=== PATIENT | male | born 2000 | race Two or more races ===

== ENCOUNTER 2018-01-25 23:53 | Emergency (ER) | payer MEDICAID ==
[~2018-01-25] VITALS: Ht 175.3 cm; Wt 118.0 kg
[2018-01-26] MEDS ORDERED: IBUPROFEN 600MG TABLET PO ONE (01:00)
[2018-01-26] MEDS ORDERED: ONDANSETRON HCL 4MG/2ML VIAL IV STA (02:51)
[2018-01-26] MEDS ORDERED: SODIUM CHLORIDE 0.9% 1,000 ML IV ONE (02:51)
[2018-01-26] MEDS ORDERED: FENTANYL CITRATE/PF 50MCG/ML 2ML VIAL IV ONE (03:00)
[2018-01-26 03:12] LABS: BASOPHILS % 0.7 % (0.0-2.0); EOSINOPHILS % 2.2 % (0.0-5.0); HEMOGLOBIN. 15.2 g/dL (14.0-18.0); LYMPHOCYTES % 46.3 % (20.0-50.0); MEAN CORPUSCULAR HEMOGLOBIN 30.2 pg (28.0-32.0); MEAN CORPUSCULAR VOLUME 87.4 fL (80.0-94.0); MEAN PLATELET VOLUME 9.6 fl (7.4-10.4); MONOCYTES % 11.9 % (2.0-8.0); NEUTROPHILS % 38.9 % (40.0-76.0); PLATELET 235 x1000/uL (130-400); RED BLOOD CELL COUNT 5.03 mill/uL (4.7-6.1); RED CELL DISTRIBUTION WIDTH 12.9 % (11.6-14.6)
[2018-01-26 03:33] LABS: CHLORIDE 105 mEq/L (98-107)
[2018-01-26] MEDS ORDERED: IOHEXOL-300 100 ML BOTTLE ONE (03:57)
[2018-01-26 04:54] VITALS: BP 119/78
[2018-01-26] MEDS ORDERED: IBUPROFEN 600MG TABLET ONE (14:07)
== END 2018-01-26 04:55 | disposition home or self-care (01) ==
LOC: ER 23:53
DX: R06.02 Shortness of breath (principal); K76.0 Fatty (change of) liver, not elsewhere classified; V29.9XXA Motorcycle rider (driver) (passenger) injured in unspecified traffic accident, initial encounter; Y93.89 Activity, other specified; Y92.410 Unspecified street and highway as the place of occurrence of the external cause
CPT/HCPCS: 36415; 71045; 71260; 73030; 73502; 74177; 80048; 85025; 99285; J3010; J7030; Q9967

== ENCOUNTER 2019-06-22 05:00 | Day surgery (SDC) | payer MEDICAID ==
[~2019-06-22] VITALS: Ht 182.9 cm; Wt 113.0 kg
[2019-06-22] MEDS ORDERED: MORPHINE SULFATE 4 MG/ML CPJ (NOT FOR IM USE) IV STA (06:19)
[2019-06-22] MEDS ORDERED: ONDANSETRON HCL 4MG/2ML INJ IV STA (06:19)
[2019-06-22 07:14] LABS: BASOPHILS % 0.4 % (0.0-2.0); EOSINOPHILS % 0.7 % (0.0-5.0); HEMATOCRIT. 41.8 % (42.0-52.0); HEMOGLOBIN. 14.6 g/dL (14.0-18.0); LYMPHOCYTES % 20.4 % (20.0-50.0); MEAN CORPUSCULAR HEMOGLOBIN 30.6 pg (28.0-32.0); MEAN CORPUSCULAR VOLUME 87.8 fL (80.0-94.0); MEAN PLATELET VOLUME 9.2 fl (7.4-10.4); MONOCYTES % 6.4 % (2.0-8.0); NEUTROPHILS % 72.1 % (40.0-76.0); PLATELET 231 x1000/uL (130-400); RED BLOOD CELL COUNT 4.76 mill/uL (4.7-6.1); RED CELL DISTRIBUTION WIDTH 12.6 % (11.6-14.6)
[2019-06-22 07:21] LABS: CHLORIDE 106 mEq/L (98-107)
[2019-06-22] MEDS ORDERED: METRONIDAZOLE 500 MG PREMIX 100 ML IV ONE (07:45)
[2019-06-22] MEDS ORDERED: LEVOFLOXACIN 750MG PREMIX 150 ML IV ONE (07:45)
[2019-06-22] MEDS ORDERED: BUPIVACAINE HCL 0.5% (5MG/ML) 50ML ONE (08:51)
[2019-06-22] MEDS ORDERED: SKIN ADHESIVE 0.7 GM EA TOP ONE (08:51)
[2019-06-22] MEDS ORDERED: MORPHINE SULFATE 4 MG/ML CPJ (NOT FOR IM USE) IV ONE (09:15)
[2019-06-22 09:29] LABS: CLARITY URINE CLEAR (CLEAR); COLOR URINE YELLOW (YELLOW); KETONES URINE NEGATIVE (NEGATIVE); LEUKOCYTE ESTERASE URINE NEGATIVE (NEGATIVE); NITRITE URINE NEGATIVE (NEGATIVE); OCCULT BLOOD URINE NEGATIVE (NEGATIVE); PH URINE 7.5 (4.5-8.0); PROTEIN URINE NEGATIVE (NEGATIVE); UROBILINOGEN URINE 0.2 E.U./dL (0.2-1.0)
[2019-06-22] MEDS ORDERED: DOCUSATE SODIUM 100MG CAPSULE PO PRN (09:30)
[2019-06-22] MEDS ORDERED: HYDROCODONE/ACETAMINOPHEN 5/325MG TABLET PO PRN (09:30)
[2019-06-22] MEDS ORDERED: MORPHINE SULFATE 2 MG/ML CPJ (NOT FOR IM USE) IV PRN (09:30)
[2019-06-22] MEDS ORDERED: ONDANSETRON HCL 4MG/2ML INJ IV PRN ×2 (09:30→12:15)
[2019-06-22] MEDS ORDERED: LORAZEPAM 2MG/ML CPJ IV PRN (09:30)
[2019-06-22] MEDS ORDERED: IPRATROPIUM/ALBUTEROL 0.5-3(2.5)MG/3ML NEB INH PRN (09:30)
[2019-06-22] MEDS ORDERED: MAGNESIUM/ALUMINUM HYDROXIDE/SIMETHICONE 30ML UDC PO PRN (09:30)
[2019-06-22] MEDS ORDERED: CLONIDINE 0.1MG TABLET PO PRN (09:30)
[2019-06-22] MEDS ORDERED: GUAIFENESIN 200MG/10ML SUGAR FREE UDC PO PRN (09:30)
[2019-06-22] MEDS ORDERED: DIPHENHYDRAMINE 50MG/ML VIAL IV PRN (09:30)
[2019-06-22] MEDS ORDERED: ACETAMINOPHEN 325MG TABLET PO PRN (09:30)
[2019-06-22] MEDS ORDERED: ENOXAPARIN 30MG/0.3ML SYR SUBCUT SCH ×2 (11:00→21:00)
[2019-06-22] MEDS ORDERED: PIPERACILLIN/TAZ 3.375G PREMIX 50 ML IV SCH ×2 (11:15→19:00)
[2019-06-22] MEDS ORDERED: FENTANYL CITRATE/PF 50MCG/ML 2ML VIAL ONE (11:25)
[2019-06-22] MEDS ORDERED: ROCURONIUM BROMIDE 10MG/ML VIAL 5ML IV ONE (11:26)
[2019-06-22] MEDS ORDERED: NEOSTIGMINE METHYLSULFATE 1MG/ML 10 ML VIAL ONE (11:26)
[2019-06-22] MEDS ORDERED: GLYCOPYRROLATE 0.2 MG/ML 2ML VIAL ONE (11:26)
[2019-06-22] MEDS ORDERED: PROPOFOL 200MG/20ML VIAL IV ONE (11:26)
[2019-06-22] MEDS ORDERED: MIDAZOLAM HCL 2 MG/2 ML VIAL ONE (11:26)
[2019-06-22] MEDS ORDERED: DEXAMETHASONE 4MG/ML 1ML VIAL ONE (11:28)
[2019-06-22] MEDS ORDERED: LABETALOL HCL 5MG/ML VIAL 20ML IV PRN (12:15)
[2019-06-22] MEDS ORDERED: MEPERIDINE HCL/PF 25MG/ML CPJ IV PRN (12:15)
[2019-06-22] MEDS ORDERED: HYDROMORPHONE HCL/PF 2MG/ML (OR) ONE (12:19)
[2019-06-22] MEDS ORDERED: SODIUM CHLORIDE 0.9% 10ML VIAL ONE (12:20)
[2019-06-22] MEDS: HYDROMORPHONE HCL/PF 2MG/ML CPJ IV PRN ×3 (13:24→13:49)
[2019-06-22] MEDS ORDERED: HYDROCODONE/ACETAMINOPHEN 5/325MG TABLET PO ONE (14:15)
[2019-06-22] MEDS ORDERED: NA PHOS,M-B/NA PHOS,DI-BA ENEMA 118ML PR PRN (15:00)
[2019-06-22] MEDS ORDERED: HYDROCODONE/ACETAMINOPHEN 5/325MG TABLET PO NR ×2 (16:00→17:30)
[2019-06-22] MEDS ORDERED: KETOROLAC 30MG/ML VIAL IV NR (17:30)
[2019-06-22] MEDS ORDERED: LACTATED RINGERS 1,000 ML IV SCH (17:30)
[2019-06-22] MEDS ORDERED: HYDROCODONE/ACETAMINOPHEN 5/325MG TABLET ONE (17:30)
[2019-06-22] MEDS ORDERED: KETOROLAC 30MG/ML VIAL ONE (17:30)
[2019-06-22 17:35] VITALS: BP 133/68
== END 2019-06-22 19:35 | disposition home or self-care (01) ==
LOC: ER 05:00 → 6EST 08:10 → UNDOADMIN 08:10 → EDBEDREQ 08:13 → ENRESERV 08:20 → OR 11:30 → ORIP 06-23 08:29 → 6EST 06-23 08:29
PROVIDERS: ATTEND Surgery
DX: K35.890 Other acute appendicitis without perforation or gangrene (principal); E66.01 Morbid (severe) obesity due to excess calories; Z68.33 Body mass index [BMI] 33.0-33.9, adult; Z79.899 Other long term (current) drug therapy
CPT/HCPCS: 36415; 44970; 74176; 80053; 81003; 83690; 85025; 85610; 86850; 86900; 86901; 88304; 96374; 99285; J1100; J1170; J1885; J1956; J2250; J2270; J2405; J2704; J2710; J3010; J3490; J7030

== ENCOUNTER 2020-01-15 16:16 | Emergency (ER) | payer SELFPAY ==
[~2020-01-15] VITALS: Ht 175.3 cm; Wt 127.0 kg
[2020-01-15] MEDS ORDERED: SODIUM CHLORIDE 0.9% 500 ML IV ONE (17:00)
[2020-01-15 17:57] LABS: BASOPHILS % 0.4 % (0.0-2.0); EOSINOPHILS % 1.6 % (0.0-5.0); HEMATOCRIT. 44.9 % (42.0-52.0); HEMOGLOBIN. 15.7 g/dL (14.0-18.0); LYMPHOCYTES % 28.3 % (20.0-50.0); MEAN CORPUSCULAR HEMOGLOBIN 30.9 pg (28.0-32.0); MEAN CORPUSCULAR VOLUME 88.3 fL (80.0-94.0); MEAN PLATELET VOLUME 10.2 fl (7.4-10.4); MONOCYTES % 8.2 % (2.0-8.0); NEUTROPHILS % 61.5 % (40.0-76.0); PLATELET 247 x1000/uL (130-400); RED BLOOD CELL COUNT 5.08 mill/uL (4.7-6.1); RED CELL DISTRIBUTION WIDTH 12.5 % (11.6-14.6)
[2020-01-15 18:00] LABS: CHLORIDE 107 mEq/L (98-107)
[2020-01-15 21:47] VITALS: BP 136/79
== END 2020-01-15 21:49 | disposition home or self-care (01) ==
LOC: ER 16:16
DX: J06.9 Acute upper respiratory infection, unspecified (principal); Z20.828 Contact with and (suspected) exposure to other viral communicable diseases
CPT/HCPCS: 36415; 71045; 80053; 85025; 87420; 87635; 87804; 99285; J7040; U0002

== ENCOUNTER 2020-03-20 14:11 | Emergency (ER) | payer SELFPAY ==
[~2020-03-20] VITALS: Ht 182.9 cm; Wt 130.0 kg
[2020-03-20 16:35] VITALS: BP 145/79
== END 2020-03-20 16:36 | disposition home or self-care (01) ==
LOC: ER 14:11
DX: S69.92XA Unspecified injury of left wrist, hand and finger(s), initial encounter (principal); F12.10 Cannabis abuse, uncomplicated; Z90.49 Acquired absence of other specified parts of digestive tract; W18.30XA Fall on same level, unspecified, initial encounter; Y93.89 Activity, other specified; Y92.89 Other specified places as the place of occurrence of the external cause; Y99.8 Other external cause status
CPT/HCPCS: 29125; 73110; 99283

== ENCOUNTER 2022-08-05 14:51 | Emergency (ER) | payer MEDICAID ==
[~2022-08-05] VITALS: Ht 182.9 cm; Wt 130.0 kg
[2022-08-05 15:14] VITALS: BP 154/88
== END 2022-08-05 18:38 | disposition left against medical advice (07) ==
LOC: ER 14:51
DX: Z53.21 Procedure and treatment not carried out due to patient leaving prior to being seen by health care provider (principal)

== ENCOUNTER 2024-12-13 08:50 | Emergency (ER) | payer SELFPAY ==
[~2024-12-13] VITALS: Ht 182.9 cm; Wt 123.6 kg
[2024-12-13 09:00] VITALS: O2SAT 99
[2024-12-13] MEDS ORDERED: ACETAMINOPHEN 325MG TABLET PO ONE (09:00)
[2024-12-13] MEDS: ACETAMINOPHEN 325MG TABLET PO NR (13:01)
[2024-12-13 15:22] VITALS: BP 147/97; PULSE 77; RESP 18; TEMP 36.6; O2SAT 99
== END 2024-12-13 15:23 | disposition home or self-care (01) ==
LOC: ER 08:50
DX: S42.032A Displaced fracture of lateral end of left clavicle, initial encounter for closed fracture (principal); S43.102A Unspecified dislocation of left acromioclavicular joint, initial encounter; F12.90 Cannabis use, unspecified, uncomplicated; Z90.49 Acquired absence of other specified parts of digestive tract; X58.XXXA Exposure to other specified factors, initial encounter; Y93.89 Activity, other specified; Y92.89 Other specified places as the place of occurrence of the external cause; Y99.8 Other external cause status
CPT/HCPCS: 71250; 73000; 73030; 73110; 73130; 73200; 74176; 99291; A4565